=== PATIENT | female | born 1980 | race Hispanic/Latino ===

== ENCOUNTER → 2023-01-09 | Outpatient (CLI) | payer BC | END | disposition home or self-care (01) | LOC: RAH 14:56 | PROVIDERS: ATTEND Obstetrics & Gynecology | DX: N92.1 Excessive and frequent menstruation with irregular cycle (principal); D25.9 Leiomyoma of uterus, unspecified | CPT/HCPCS: 76856 ==

== ENCOUNTER → 2023-01-20 | Outpatient (CLI) | payer BC | END | disposition home or self-care (01) | LOC: RAH 10:13 → EDUNIT# 10:20 | PROVIDERS: ATTEND Obstetrics & Gynecology | DX: Z12.31 Encounter for screening mammogram for malignant neoplasm of breast (principal) | CPT/HCPCS: 77067 ==